=== PATIENT | male | born 1990 | race Caucasian/White ===

== ENCOUNTER → 2017-09-18 | Outpatient (CLI) | payer OTHER ==
[~2017-09-18] MED LIST: IBUP-1050 PO
--- NOTE | 2017-09-18 11:12 | DIAGNOSTIC IMAGING REPORT ---
L-SPINE MIN 4 VIEWS ROUTINE CLINICAL HISTORY: R20.2 Paresthesia of lower [id number] COMPARISON STUDY: No previous studies for comparison. FINDINGS: The bowel gas pattern is unremarkable. No acute fractures or subluxations are visualized. No destructive lesions are evident. There is a small node involving the anterior superior L4 endplate. IMPRESSION: No fractures, subluxations, or destructive lesions are visualized Electronically signed by: Viktor Bashir M.D. 09/18/2017 11:11 AM Dictated Date/Time: 09/18/2017 11:10 AM
[2017-09-18 12:11] LABS: BASO % 0.3 %; BASO ABS # 0.03 K/uL (0-0.2); COMPLETE YES; EOS % 1.7 %; HEMATOCRIT 44.1 % (42-52); IG% 0.5 %; LYMPH % 20.9 %; LYMPH ABS # 2.32 K/uL (1.2-3.4); MEAN CELL VOLUME 84.6 fL (80-100); MEAN CORPUSCULAR HEMOGLOBIN 28.6 pg (25-34); MEAN CORPUSCULAR HGB CONC 33.8 g/dl (32-36); MEAN PLATELET VOLUME 11.5 fL (7.4-10.4); MONO % 4.6 %; PLATELET COUNT 233 K/uL (130-400); RED BLOOD COUNT 5.21 M/uL (4.7-6.1)
[2017-09-18 12:24] LABS: ESTIMATED AVERAGE GLUCOSE 226 mg/dl; HA1C FLAG Normal (Normal)
[2017-09-18 13:22] LABS: ALT/SGPT 41 U/L (12-78); BLOOD UREA NITROGEN 11 mg/dl (7-18); BUN/CREATININE RATIO 15.4 (10-20); CALCIUM 8.9 mg/dl (8.5-10.1); CARBON DIOXIDE 29 mmol/L (21-32); CHLORIDE 107 mmol/L (98-107); CHOLESTEROL 155 mg/dl (0-200); CREATININE 0.74 mg/dl (0.60-1.40); GLUCOSE 98 mg/dl (70-99); POTASSIUM 3.9 mmol/L (3.5-5.1); SODIUM 141 mmol/L (136-145); TRIGLYCERIDES 156 mg/dl (0-150); VERY LOW DENSITY LIPOPROT CALC 31 mg/dl
[2017-09-18 13:32] LABS: ALB/GLOB RATIO 0.9 (0.9-2); ALKALINE PHOSPHATASE 103 U/L (45-117); AST/SGOT 26 U/L (15-37); CHOLESTEROL/HDL RATIO 4.8; HDL CHOLESTEROL 32 mg/dl; LDL CHOLESTEROL CALCULATED 92 mg/dl
[2017-09-18 13:58] LABS: RATIO 4.5 mcg/mg (0-30.0)
== END | disposition home or self-care (01) ==
LOC: C.RAD1850 10:38
PROVIDERS: ATTEND Nurse Practitioner Adult Health
DX: E11.9 Type 2 diabetes mellitus without complications (principal); R20.2 Paresthesia of skin

== ENCOUNTER → 2017-10-07 | Outpatient (CLI) | payer OTHER | END | disposition home or self-care (01) | LOC: C.LAB1850 12:27 | PROVIDERS: ATTEND Family Medicine | DX: R94.6 Abnormal results of thyroid function studies (principal) ==

== ENCOUNTER 2017-10-31 01:18 | Emergency (ER) | payer OTHER ==
[~2017-10-31] VITALS: Ht 188 cm; Wt 154.3 kg
[~2017-10-31 01:18] MED LIST changes: +DOXY100C2 PO; +LEVO200T6 PO
[2017-10-31 01:25] VITALS: TEMP 36.8; Ht 188 cm; Wt 154.3 kg
[2017-10-31] MEDS ORDERED: CEFTRIAXONE SOD INJ 1 GM ADDVIAL IV STA (02:00)
[2017-10-31] MEDS ORDERED: CLINDAMYCIN 600 MG/54 ML D5W IV ONE (02:15)
[2017-10-31 02:30] LABS: BASO % 0.1 %; BASO ABS # 0.02 K/uL (0-0.2); COMPLETE YES; EOS % 1.2 %; HEMATOCRIT 43.4 % (42-52); IG% 0.3 %; LYMPH % 21.7 %; LYMPH ABS # 2.89 K/uL (1.2-3.4); MEAN CELL VOLUME 86.3 fL (80-100); MEAN CORPUSCULAR HGB CONC 33.6 g/dl (32-36); MEAN PLATELET VOLUME 10.7 fL (7.4-10.4); MONO % 4.9 %; NEUT % 71.8 %; PLATELET COUNT 227 K/uL (130-400); RED BLOOD COUNT 5.03 M/uL (4.7-6.1); WHITE BLOOD COUNT 13.34 K/uL (4.8-10.8)
[2017-10-31 02:51] LABS: CALCIUM 8.3 mg/dl (8.5-10.1); CREATININE 0.72 mg/dl (0.60-1.40); POTASSIUM 3.3 mmol/L (3.5-5.1)
[2017-10-31] MEDS ORDERED: INSU70IN2 SC (02:51)
[2017-10-31] MEDS ORDERED: POTASSIUM CHLORIDE 10 MEQ TABCR PO STA (03:31)
[2017-10-31] MEDS ORDERED: XYLOCAINE 1%/SOD BICARB 20 ML VIAL INFIL ONE (05:00)
[2017-10-31] MEDS ORDERED: CLIN150C PO (05:21)
[2017-10-31] MEDS ORDERED: CLIN1GEL5 TOP (05:21)
[2017-10-31 05:36] VITALS: BP 147/84; PULSE 76; O2SAT 99
--- NOTE | 2017-10-31 05:46 | EMERGENCY ROOM VISIT NOTE ---
History First contact with patient: 01:50 Chief Complaint: WOUND INFECTION Stated Complaint: PUSSING AND BRUISING OF ARMPIT Nursing Triage Summary: patient reports infection of left armpit History of Present Illness The patient is a 27 year old male who presents to the Emergency Room with complaints of left axilla pain and swelling with drainage for the past 2 weeks he just finished doxycycline by the family care doctor. Blood sugars running around 200. Patient denies fevers, chest pain, dyspnea, numbness, tingling. Patient states the area is painful red and swollen. Tetanus is current. Review of Systems See HPI for pertinent positives & negatives. A total of 10 systems reviewed and were otherwise negative. Past Medical/Surgical History Medical Problems: (1) CHRONIC TONSILLITIS (2) DIAB WILFREDO WO COMPL, TYPE I [JUVENILE TYPE], UNCONTROLLED (3) FX ANKLE NOS-CLOSED (4) Tonsillectomy Family History Cancer Diabetes mellitus Hypertension Social History Smoking Status: Former Smoker Drug Use: none Marital Status: in relationship Housing Status: lives with family Occupation Status: employed Current/Historical Medications Scheduled Clindamycin Hcl (Cleocin), 150 MG PO QID Clindamycin Phosphate (Topical (Clindamycin Phosphate), 1 APPLN TOP BID Doxycycline Hyclate (Vibramycin), 100 MG PO BID Insulin Isophan/Regular (Novolin 70/30), 0 SC BID Levothyroxine Sodium (Levothyroxine Sodium), 200 MCG PO DAILY Physical Exam Vital Signs Date Time Temp Pulse Resp B/P (MAP) Pulse Ox O2 Delivery O2 Flow Rate FiO2 10/31/17 04:26 81 18 157/96 99 Room Air 10/31/17 01:25 36.8 87 18 163/105 98 Room Air Physical Exam VITALS: Vitals are noted on the nurse's note and reviewed by myself. Vital signs hypertensive. GENERAL: Pleasant male, in no acute distress, nondiaphoretic, well-developed well-nourished. SKIN: Capillary reflex less than 2 seconds. Left axilla slightly erythematous with 3 large areas that are indurated without fluctuance concerning for hidradenitis suppurativa with possible abscess. No lymphangitis HEENT: Normocephalic. PERRLA. EOMI. Nares patent. Mucous membranes moist. Neck is supple without nuchal rigidity. HEART: Regular rate and rhythm without murmurs gallops or rubs. LUNGS: Clear to auscultation bilaterally without wheezes, rales or rhonchi. No retractions or accessory muscle use. ABDOMEN: Positive bowel sounds x 4. Normal tympanic percussion. Soft, protuberant, obese, nontender, without masses or organomegaly. Hawkins sign negative. No guarding or rebound tenderness. MUSCULOSKELETAL: No gross musculoskeletal defects. No pedal edema. No calf tenderness. NEURO: Patient was alert and oriented to person place and time. Normal sensation to light and sharp touch. No focal neurological deficits. Medical Decision & Procedures Laboratory Results 10/31/17 02:16 Red Blood Count 5.03, Mean Corpuscular Volume 86.3, Mean Corpuscular Hemoglobin 29.0, Mean Corpuscular Hemoglobin Concent 33.6, Mean Platelet Volume 10.7, Neutrophils (%) (Auto) 71.8, Lymphocytes (%) (Auto) 21.7, Monocytes (%) (Auto) 4.9, Eosinophils (%) (Auto) 1.2, Basophils (%) (Auto) 0.1, Neutrophils # (Auto) 9.58, Lymphocytes # (Auto) 2.89, Monocytes # (Auto) 0.65, Eosinophils # (Auto) 0.16, Basophils # (Auto) 0.02 10/31/17 02:16 Test 10/31/17 02:16 White Blood Count 13.34 K/uL (4.8-10.8) Red Blood Count 5.03 M/uL (4.7-6.1) Hemoglobin 14.6 g/dL (14.0-18.0) Hematocrit 43.4 % (42-52) Mean Corpuscular Volume 86.3 fL (80-100) Mean Corpuscular Hemoglobin 29.0 pg (25-34) Mean Corpuscular Hemoglobin Concent 33.6 g/dl (32-36) Platelet Count 227 K/uL (130-400) Mean Platelet Volume 10.7 fL (7.4-10.4) Neutrophils (%) (Auto) 71.8 % Lymphocytes (%) (Auto) 21.7 % Monocytes (%) (Auto) 4.9 % Eosinophils (%) (Auto) 1.2 % Basophils (%) (Auto) 0.1 % Neutrophils # (Auto) 9.58 K/uL (1.4-6.5) Lymphocytes # (Auto) 2.89 K/uL (1.2-3.4) Monocytes # (Auto) 0.65 K/uL (0.11-0.59) Eosinophils # (Auto) 0.16 K/uL (0-0.5) Basophils # (Auto) 0.02 K/uL (0-0.2) RDW Standard Deviation 41.7 fL (36.4-46.3) RDW Coefficient of Variation 13.3 % (11.5-14.5) Immature Granulocyte % (Auto) 0.3 % Immature Granulocyte # (Auto) 0.04 K/uL (0.00-0.02) Anion Gap 1.0 mmol/L (3-11) Est Creatinine Clear Calc Drug Dose 239.9 ml/min Estimated GFR () 147.1 Estimated GFR (Non- 126.9 BUN/Creatinine Ratio 12.0 (10-20) Calcium Level 8.3 mg/dl (8.5-10.1) Medications Administered Medications (Trade) Dose Ordered Sig/Amaury Route Start Time Stop Time Status Last Admin Dose Admin Clindamycin Phosphate (Cleocin 600mg/ 54ml D5W) 600 mg ONE ONCE IV 10/31/17 02:15 10/31/17 02:16 DC 10/31/17 02:29 600 MG Potassium Chloride (Klor-Con M10) 20 meq NOW STAT PO 10/31/17 03:31 10/31/17 03:32 DC 10/31/17 03:51 20 MEQ Procedure Incision & Drainage Indication: Abscess. Location: Left axilla Verbal consent was obtained after the risks and benefits were explained, including but not limited to bleeding, scarring, infection, pain, and bone/joint /nerve damage. At this time, the risks of the procedure are less than the risks of NOT performing the procedure. A time out was taken and the correct patient and site identified. The skin was prepped with betadine and a sterile field set. The wound was anesthetized with 8 ml of 1% lidocaine without epinephrine. The abscess cavity was entered with a number 11 blade and clear bloody material expressed. Copious irrigation was performed using normal saline. The wound was explored for foreign bodies and none found. Debridement was not performed. Packing placed and a sterile dressing applied. Detailed wound care instructions and signs and symptoms of worsening infection reviewed with the patient. No complications and the patient tolerated the procedure well. Incision & Drainage Indication: Abscess. Location: Left axilla Verbal consent was obtained after the risks and benefits were explained, including but not limited to bleeding, scarring, infection, pain, and bone/joint /nerve damage. At this time, the risks of the procedure are less than the risks of NOT performing the procedure. A time out was taken and the correct patient and site identified. The skin was prepped with betadine and a sterile field set. The wound was anesthetized with 8 ml of 1% lidocaine without epinephrine. The abscess cavity was entered with a number 11 blade and clear bloody material expressed. Copious irrigation was performed using normal saline. The wound was explored for foreign bodies and none found. Debridement was not performed. Packing placed and a sterile dressing applied. Detailed wound care instructions and signs and symptoms of worsening infection reviewed with the patient. No complications and the patient tolerated the procedure well. ED Course Prior records reviewed and summarized as above. Triage Nursing notes reviewed. Additional history obtained from [place]. The patient's history was concerning for swelling and redness of the skin. Differential diagnosis: Etiologies such as HS, cellulitis, abscess, MRSA infection, DVT, necrotizing fasciitis, dermatitis, drug eruption, as well as others were entertained.. Physical examination: As above ER treatment provided: Clindamycin, I&D as above 2 as are 2 areas of concern On reassessment the patient felt better. Diagnostics interpreted by me: The labs revealed mild leukocytosis. No hyperglycemia Imaging studies: Ultrasound in the region of interest of the left axilla shows a complex irregular fluid collection measuring 4.8 x 1.4 x 2.6 cm. Increased peripheral vascularity. May represent absence. Per radiology. This appears to be hydradenitis suppurativa of the left axilla. I&D was above with no purulent material expressed. 2 areas of interest were I&D. Wound culture was taken. Areas were packed. Patient just finished doxycycline. He was started on topical clindamycin and on oral clindamycin. He was advised about proper hygiene and on other conservative measures to help control his problem. He was advised follow-up family care in a few days for wound repacking and reevaluation or here in the ER sooner for fevers, spreading of infection, so signs or symptoms or as needed. By the evaluation outlined above emergent etiologies such as necrotizing fasciitis, DVT, as well as others were deemed relatively unlikely. The pt informed about the findings as listed above. All questions were answered and pleased with the treatment. Return instructions were outlined and the patient was discharged in stable condition. Outpatient prescription management: Cleocin Referral: The patient was referred back to primary care physician for follow-up in 2 to 3 days for a recheck of the current condition. Case reviewed with my attending Medical Decision As above Medication Reconcilliation Current Medication List: was personally reviewed by me Blood Pressure Screening Patient's blood pressure: Elevated blood pressure Blood pressure disposition: Referred to PCP Impression Primary Impression: Hidradenitis suppurativa of left axilla Departure Information Dispostion Home / Self-Care Condition GOOD Prescriptions Clindamycin Phosphate (Topical (CLINDAMYCIN PHOSPHATE) 1 % Gel 1 APPLN TOP BID for 30 Days, #60 GM 0 Refills Prov: Alondra Rice .RAJAN 10/31/17 Clindamycin Hcl (CLEOCIN) 150 Mg Cap 150 MG PO QID for 9 Days, #36 CAP Prov: Alondra Rice .RAJAN 10/31/17 Forms WORK / SCHOOL INSTRUCTIONS, HOME CARE DOCUMENTATION FORM, IMPORTANT VISIT INFORMATION Patient Instructions [facility], ED Axillary Gland Infec IandD, ED Axillary Gland Infec Abx Additional Instructions Frequently change out the outer wound dressing. Leave the inner dressing in place. Bring the packing material to your follow-up appointment with family care. Do not open this. Clindamycin 150 mg: Take one pill four times daily for 10 days for your skin infection. All antibiotics can cause diarrhea. If this occurs and you feel worse or it does not resolve in 1-2 days follow up with your doctor or return to the Emergency Department as this could be signs of serious underlying problems. Any medication can cause an allergic reaction, stop the pills immediately and return to the ER for rash, hives, breathing difficulties, or swelling. Clindamycin cream: Apply twice a day to the affected area of intact skin only. All antibiotics can cause diarrhea. If this occurs and you feel worse or it does not resolve in 1-2 days follow up with your doctor or return to the Emergency Department as this could be signs of serious underlying problems. Any medication can cause an allergic reaction, stop the pills immediately and return to the ER for rash, hives, breathing difficulties, or swelling. Ibuprofen(Motrin, Advil) may be used for fever or pain. Use 600mg every six hours as needed. Take with food. Avoid using more than 2400mg in a 24 hour period. Do not use 2400mg per day for more than three consecutive days without physician direction. Prolonged inappropriate use can lead to stomach upset or ulcers. (AND/OR) Acetaminophen(Tylenol) may be used for fever or pain. Use 1000mg every six hours as needed. Avoid using more than 3000mg in a 24 hour period. Warm compresses to the affected area 4 times daily for 15-20 minutes. Rest and drink plenty of fluids. Continue current medications. Return to the ER for severe pain, persistent fevers, spreading redness, or any worsening of your condition. Follow up with your primary physician within 2-3 days for a recheck of the current condition and for wound repacking. Recommend referral to surgery if symptoms do not resolved.
--- NOTE | 2017-10-31 07:21 | DIAGNOSTIC IMAGING REPORT ---
EXTREMITY NONVASCULAR LIMITED HISTORY: 27 years-old Male right axilla swelling, ? abscess acute swelling of the right axilla with possible abscess. COMPARISON: None available TECHNIQUE: Multiple real-time sonogram images of the left axilla were obtained assessing grayscale appearance, and color flow FINDINGS: Within the area of concern within the left axilla there is a complex mixed echogenicity collection which measures up to 4.8 x 1.4 x 2.6 cm demonstrate areas of increased vascularity peripherally. This appears to be compressible and demonstrates internal mobile debris. Mildly enlarged left axillary lymph nodes are seen measuring up to 2.3 x 1.6 x 1.6 cm. IMPRESSION: 1. Complex compressible collection containing internal mobile debris within the left axilla measuring up to 4.8 cm suggests abscess. 2. Mildly prominent left axillary adenopathy is likely reactive. The above report was generated using voice recognition software. It may contain grammatical, syntax or spelling errors. Electronically signed by: Chase Pineda M.D. 10/31/2017 7:20 AM Dictated Date/Time: 10/31/2017 7:18 AM
== END 2017-10-31 05:37 | disposition home or self-care (01) ==
LOC: C.EDB 01:19
DX: L73.2 Hidradenitis suppurativa (principal); E10.9 Type 1 diabetes mellitus without complications; Z83.3 Family history of diabetes mellitus; Z82.49 Family history of ischemic heart disease and other diseases of the circulatory system; Z87.891 Personal history of nicotine dependence

== ENCOUNTER → 2018-03-20 | Outpatient (CLI) | payer OTHER ==
[~2018-03-20] MED LIST changes: +CLIN1GEL5 TOP; -IBUP-1050 PO; +INSU70IN2 SC
[2018-03-20 13:57] LABS: HEMOGLOBIN A1C 7.6 % (4.5-5.6)
== END | disposition home or self-care (01) ==
LOC: C.LAB1850 12:13
PROVIDERS: ATTEND Physician Assistant
DX: E03.9 Hypothyroidism, unspecified (principal); E10.65 Type 1 diabetes mellitus with hyperglycemia